=== PATIENT | female | born 1955 | race Caucasian/White ===

== ENCOUNTER 2018-02-27 10:27 | Day surgery (SDC) | payer BC, OTHER ==
[~2018-02-27] VITALS: Ht 154.9 cm; Wt 78.0 kg
[~2018-02-27 10:27] MED LIST: ATOR40TA; ERGO400; SERT100
[2018-02-27] MEDS ORDERED: ASPI81CH (11:14)
== END 2018-02-27 13:26 | disposition home or self-care (01) ==
LOC: ORSCSDS 10:27
PROVIDERS: Internal Medicine Gastroenterology
PROC: 0DBL8ZX Excision of Transverse Colon, Via Natural or Artificial Opening Endoscopic, Diagnostic (ICD-10-PCS; principal; 2018-02-27 11:45)
PROC: 0DBN8ZX Excision of Sigmoid Colon, Via Natural or Artificial Opening Endoscopic, Diagnostic (ICD-10-PCS; principal; 2018-02-27 11:45)
DX: Z12.11 Encounter for screening for malignant neoplasm of colon (principal); D12.3 Benign neoplasm of transverse colon; K63.5 Polyp of colon; E78.5 Hyperlipidemia, unspecified; F32.9 Major depressive disorder, single episode, unspecified; E66.9 Obesity, unspecified; F17.210 Nicotine dependence, cigarettes, uncomplicated; Z79.82 Long term (current) use of aspirin; Z79.899 Other long term (current) drug therapy
CPT/HCPCS: 88305

== ENCOUNTER 2021-11-21 11:37 | Day surgery (SDC) | payer MEDICARE, BC, OTHER ==
[~2021-11-21] VITALS: Ht 152.4 cm; Wt 76.9 kg
[~2021-11-21 11:37] MED LIST changes: +ASPI81CH
[2021-11-21] MEDS ORDERED: ZINC15 (11:49)
[2021-11-21] MEDS ORDERED: MERIBIN5 MG (11:49)
--- NOTE | 2021-11-21 13:39 | NUR ---
11/21/21 1339 [facility] USED FOR POLYP REMOVAL - 8ML
== END 2021-11-21 14:03 | disposition home or self-care (01) ==
LOC: ORSCSDS 11:37
PROVIDERS: Internal Medicine Gastroenterology
PROC: 0DBL8ZX Excision of Transverse Colon, Via Natural or Artificial Opening Endoscopic, Diagnostic (ICD-10-PCS; principal; 2021-11-21 13:00)
PROC: 0DBK8ZX Excision of Ascending Colon, Via Natural or Artificial Opening Endoscopic, Diagnostic (ICD-10-PCS; principal; 2021-11-21 13:00)
PROC: 0DBN8ZX Excision of Sigmoid Colon, Via Natural or Artificial Opening Endoscopic, Diagnostic (ICD-10-PCS; principal; 2021-11-21 13:00)
PROC: 3E0H8KZ Introduction of Other Diagnostic Substance into Lower GI, Via Natural or Artificial Opening Endoscopic (ICD-10-PCS; principal; 2021-11-21 13:00)
DX: Z12.11 Encounter for screening for malignant neoplasm of colon (principal); D12.3 Benign neoplasm of transverse colon; K57.30 Diverticulosis of large intestine without perforation or abscess without bleeding; K64.4 Residual hemorrhoidal skin tags; Z86.010 Personal history of colon polyps; Z79.899 Other long term (current) drug therapy
CPT/HCPCS: 88305; J2704; J7120

== ENCOUNTER 2022-09-11 09:43 | Day surgery (SDC) | payer MEDICARE, BC, OTHER ==
[~2022-09-11] VITALS: Ht 154.9 cm; Wt 75.7 kg
[~2022-09-11 09:43] MED LIST changes: +MERIBIN5 MG; +ZINC15
== END 2022-09-11 12:34 | disposition home or self-care (01) ==
LOC: ORSCSDS 09:43
PROVIDERS: Internal Medicine Gastroenterology
PROC: 0DJD8ZZ Inspection of Lower Intestinal Tract, Via Natural or Artificial Opening Endoscopic (ICD-10-PCS; principal; 2022-09-11 11:15)
DX: Z12.11 Encounter for screening for malignant neoplasm of colon (principal); Z86.010 Personal history of colon polyps; K57.30 Diverticulosis of large intestine without perforation or abscess without bleeding; K64.4 Residual hemorrhoidal skin tags; Z79.899 Other long term (current) drug therapy
CPT/HCPCS: J2405; J2704; J7120